=== PATIENT | female | born 1990 | race Caucasian/White ===

== ENCOUNTER 2018-05-21 13:37 | Observation (INO) ==
--- NOTE | 2018-05-21 16:53 | Internal Med History&Physical ---
<[email or web address] - Last Filed: 05/21/18 17:56> Date of Encounter: 05/21/18 Time of Encounter: 16:00 Internal Medicine - H&P: HPI Chief complaint: Seizure-type activity Admitted From: Intrahospital Transfer Plans for Post Hospital Care: Home History of present illness: Ms. Brumfield is a 27 year old female w/no PMH presents from the [place] ED w/ CC of seizure-type episodes for the past several days. Patient has had 4 episodes of seizure-type activity on Sunday, 2 on Sunday, and 1 today. Pt. reports being somewhat cognizant of what is going on but cannot always see during episodes. States she has left arm and right leg jerking movements during episodes and her eyes to the upper right. Reports blacking out @ work 3 years ago and waking up to same sx. Reports recent blurry vision and right-sided facial pain from forehead to jaw post-episode. Denies hx of seizures. No familial hx. Father hx unknown. CT w/i the past week unremarkable. Patient reports headache and intermittent swelling in bilateral hands but denies recent illness, fever, chills, nausea, vomiting, chest pain, shortness of breath, abdominal pain, diarrhea, constipation, numbness, tingling, dizziness, lightheadedness, pre-syncope, or syncope. Past Med Surg Social Fam HX - Past Medical History Source: patient, old records reviewed Medical history: no medical history Psychiatric history: no psych history - Past Surgical History Surgical History: Additional surgical history: csection - Social History Smoking Status: Never smoker Smokeless Tobacco Status: No Alcohol use: rarely Drug use: none Occupational status: employed Current living situation: Home, With Family Activity Level: Independent ambulation, Very active Recent Out of Country Travel Within the Last 8 Weeks: No Exposure or Possible Exposure to Illness During Travel: No - Family History Mother Race: Family Member Ethnicity: Non- Living Status: Still Living Hx Family Endocrine Disorder: Yes (DM) Hx Family Musculoskeletal Disorders: Yes (Chronic back pain) Father History Unknown: Yes Race: Family Member Ethnicity: Non- Grandfather Race: Family Member Ethnicity: Non- Living Status: Still Living Hx Family Cardiac Disorders: Yes (HTN) Hx Family Endocrine Disorder: Yes (DM) Grandmother Race: Family Member Ethnicity: Non- Living Status: Still Living Hx Family Psychosocial Disorders: Yes (Tobacco abuse) Brother Race: Family Member Ethnicity: Non- Living Status: Still Living Hx Family Medical Disorders: No Internal Medicine - H&P: Meds No Known Home Drugs 05/21/18 [History] 3 Allergy/AdvReac Type Severity Reaction Status Date / Time azithromycin [From Zithromax] Allergy Swelling Verified 05/21/18 10:37 of Lip/Tongue/Throat All Systems PM: A 10-system review of systems was performed and is negative for pertinent findings except as documented above in the HPI. - Constitutional Constitutional: as per HPI, no chills, no fever(s), no night sweats - EENT Eyes: no change in vision, no discharge, no pain, no photophobia Ears: no ear discharge, no ear pain, no tinnitus Nose, mouth and throat: no dysphagia, no nasal discharge, no neck pain, no sore throat - Breasts Breasts: as per HPI - Cardiovascular Cardiovascular ROS IM: no chest pain, no diaphoresis, no dyspnea, no lightheadedness, no palpitations, no syncope - Respiratory Respiratory: no cough, no dyspnea, no wheezing, no excessive phlegm production - Gastrointestinal Gastrointestinal: no abdominal pain, no diarrhea, no hematemesis, no hematochezia, no melena, no nausea, no vomiting - Genitourinary Genitourinary: no change in urinary stream, no dysuria, no flank pain, no hematuria Menstruation: as per HPI - Musculoskeletal Musculoskeletal ROS IM: back pain, no numbness, no tingling - Integumentary Integumentary IM: no rash, no unusual bruising - Neurological Neurological ROS: as per HPI, abnormal movements, convulsions, headache(s), tremor(s), other visual disturbances, no confusion, no focal weakness, no numbness, no tingling - Psychiatric Psychiatric: as per HPI, other (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) - Endocrine Endocrine IM: as per HPI - Hematologic/Lymphatic Hematologic/Lymphatic: no easy bruising - Allergic/Immunologic Allergic/Immunologic: as per HPI - Constitutional Vitals: Temp Pulse Resp BP Pulse Ox 98.3 F 84 18 115/82 96 05/21/18 15:35 07/31/18 15:35 05/21/18 15:35 05/21/18 15:35 05/21/18 15:35 General appearance: Present: cooperative, A&O X 3, pleasant, no acute distress, obese, answers questions appropriately - Head Head exam: Present: atraumatic, normocephalic - Eye Eye exam: Present: PERRL, conjuntiva pink, sclera anicteric Pupils: Present: PERRL - ENT ENT exam: Present: normal exam - Neck Neck exam general surgery: Present: normal inspection, supple, trachea midline. Absent: lymphadenopathy - Respiratory Respiratory exam: Present: CTAB. Absent: accessory muscle use, rales, rhonchi, wheezes - Cardiovascular Cardiovascular exam: Present: RRR, +S1, +S2. Absent: diastolic murmur, gallop, rubs, systolic murmur - GI/Abdominal GI/Abdominal exam: Present: normal bowel sounds, soft, no peritoneal signs. Absent: distended, tenderness - Rectal Rectal exam: Present: deferred - Additional comments: exam deferred. - Extremities Exam Extremities exam: Present: warm, radial pulses palpable and symmetrical. Absent : calf tenderness, cyanotic, pedal edema - Back Exam Back exam: Present: normal inspection - Neurological Exam Neurological exam: Present: alert, CN II-XII intact, oriented X3, no focal deficits. Absent: pronater drift, facial droop, speech deficit - Psychiatric Psychiatric exam: Present: normal affect, normal mood - Skin Skin exam: Present: dry, intact Internal Med - H&P Results - EKG Data EKG comments: 05/21/18 17:29 EKG dated 05/19/18 shows sinus rhythm with sinus arrhythmia. Normal ECG. - Assessment and plan (1) Seizure-like activity Current Visit: Yes Status: Acute Assessment and plan: Acute seizure-type episodes. Pt. reports first episode approximately 3 years ago following the of her daughter. Patient also states she had 4 episodes on Sunday, 2 episodes on Sunday, and 1 episode today. One episode witnessed by ED physician. Pt. reports being somewhat cognizant of what is going on but cannot always see during episodes. Reports recent blurry vision and right-sided facial pain from forehead to jaw post-episode. Denies hx of seizures. No familial hx. Father hx unknown. CT w/i the past week unremarkable. MRI of head/brain ordered. Seizure precautions. Padding to bed rails. Neurology consult ordered and discussed w/Dr. Correa w/recommendation for EEG and I appreciate the consult and recommendations as always. Falls/safety and up with assist. Pt. discussed w/Dr. Prasad who agrees with plan of care. Patient is moderate risk for further morbidity due to repeated seizure type activity over the past 4 days, history of seizure type activity approximately 3 years ago, and residual weakness of the LUE and RLE post-episode. Observation. (2) DVT prophylaxis Current Visit: Yes Status: Acute Assessment and plan: Bilateral SCDs on LEs until MRI resulted. (3) Weakness Current Visit: Yes Status: Acute Assessment and plan: Acute weakness following seizure-type episodes. Pt. reports weakness in right leg and left arm following tremors. Pt. also reports bilateral back pain following episodes from muscles tightening. Falls/safety precautions and up with assist only. - Time Spent With Patient Total time spent is greater than 50% in coordination of care (as documented) at patient's floor/unit and/or counseling patient: Greater than 35 minutes <Gonzales Prasad - Last Filed: 05/21/18 19:24> Date of Encounter: 05/21/18 Internal Medicine - H&P: HPI History of present illness: Ms. Brumfield is a 27 year old female All Systems PM: A 10-system review of systems was performed and is negative for pertinent findings except as documented above in the HPI. - Constitutional Vitals: Temp Pulse Resp BP Pulse Ox 98.8 F 88 16 132/83 96 05/21/18 19:16 05/21/18 19:16 05/21/18 19:16 05/21/18 19:16 05/21/18 19:16 Internal Med - H&P Results - Impressions ITS Impressions Brain MRI 05/21/18 16:58 IMPRESSION: Normal MRI of the brain without contrast. D/ / Ferdinand Wilson / Ferdinand Wilson Interpreting Provider: Ferdinand Wilson - Attending Attestation Discussed patient with LINCOLN and agree with assessment and plan as above Patient is a 27-year-old female who presents with seizures. On examination patient eating sitting up in the bed comfortable Consult neurology for evaluation and management of seizures. - Assessment and plan (1) Seizure-like activity Current Visit: Yes Status: Acute (2) DVT prophylaxis Current Visit: Yes Status: Acute (3) Weakness Current Visit: Yes Status: Acute - Time Spent With Patient Total time spent is greater than 50% in coordination of care (as documented) at patient's floor/unit and/or counseling patient:
[2018-05-21] MEDS ORDERED: Acetaminophen 325 MG TABLET PO PRN (16:54)
[2018-05-21] MEDS ORDERED: Naloxone 0.4 MG/ML INJ IVP PRN (16:54)
[2018-05-21] MEDS ORDERED: *HR* HYDROcodone/Acet 7.5/325 mg TABLET PO PRN (23:31)
[2018-05-22 05:01] LABS: Basophils % 0.3 %; Eosinophils # 0.2 K/mcL (0.0-0.6); Eosinophils % 1.6 %; Hematocrit 40.7 % (35.3-44.9); Hemoglobin 14.2 g/dL (11.5-15.4); Immature Granulocytes % 0.2 % (0-4); Lymphocytes # 4.4 K/mcL (0.6-4.6); Lymphocytes % 47.5 %; Mean Corpuscular HGB Conc 34.9 g/dL (31.6-35.5); Mean Corpuscular Hemoglobin 32.4 pg (28.0-33.3); Mean Corpuscular Volume 92.9 fL (83.0-100.0); Mean Platelet Volume 10.5 fL (9.4-12.4); Monocytes # 0.7 K/mcL (0.0-1.3); Monocytes % 7.1 %; Platelet Count 256 K/mcL (140-400); Red Blood Count 4.38 M/mcL (3.82-4.97); Red Cell Distribution Width 11.8 % (11.5-14.5); Segmented Neutrophils % 43.3 %
[2018-05-22 05:21] LABS: Alanine Aminotransferase 52 Units/L (7-52); Albumin 4.5 g/dL (3.5-5.7); Albumin/Globulin Ratio 1.6 (1.1-2.2); Alkaline Phosphatase 61 Units/L (34-104); Aspartate Amino Transferase 28 Units/L (13-39); BUN/Creatinine Ratio 18 (6-26); Bilirubin,Total 1.1 mg/dL (0.3-1.0); Blood Urea Nitrogen 14 mg/dL (6-20); Calcium 9.3 mg/dL (8.6-10.3); Carbon Dioxide 23 mEq/L (23-29); Chloride 108 mEq/L (98-107); Chol/HDL Ratio 3.9 (0-4.9); Cholesterol 135 mg/dL (< 200); Globulin 2.9 g/dL (2.4-3.5); Glucose 96 mg/dL (70-105); HDL Cholesterol 35 mg/dL (40-59); LDL Cholesterol,Calculated 81 mg/dL (0-99); Magnesium 1.8 mg/dL (1.6-2.6); Osmolality,Calculated 288 (280-300); Potassium 3.8 mEq/L (3.5-5.1); Sodium 139 mEq/L (136-145); Total Protein 7.4 g/dL (6.4-8.9); Triglycerides 94 mg/dL (< 150); eGFR For Non-African Americans > 60 (> 60)
[2018-05-22 07:06] LABS: Estimated Average Glucose 111 mg/dl; Hemoglobin A1C 5.5 %
--- NOTE | 2018-05-22 10:36 | Neurology - Consult Note ---
<Rolan Llamas T - Last Filed: 05/22/18 10:25> Date of Encounter: 05/22/18 Time of Encounter: 10:00 Assessment and Plan (1) Seizure-like activity Current Visit: Yes Status: Acute Lab and imaging workup normal so far EEG in process now Activity described by patient does not sound epileptic in origin and toxic/ metabolic causes not evident so far Will reassess when EEG complete but if normal ok to dc and already has office fu appt next week. Code(s): R56.9 - Unspecified convulsions SNOMED Code(s): 412497813 History of Present Illness Chief complaint: Multiple seizure like activity HPI: Ms. Brumfield is a 27 year old female with an insignificant PMH that neurology is being consulted for multiple seizure like activity. She states she had 4 seizures 4 days ago at work and was taken to the ED and discharged same day. She had 2 more seizures 3 days ago and 1 more yesterday and was taken to the ED here and admitted. She describes her seizures as she is not "completely out" and can still here but can not see. She says her L arm shakes, R knee/R lateral thigh tightens and her mid back gets tight. This lasts for 2-3 min and has a postictal state for 1/2-1 hour. Her multiple seizures occurred ~10 min apart from each other. She describes an aura consisting of perioral numbness, and maxillary numbness ~10 min before an event happens. She says she first had a seizure 6 years ago after giving and then again this Feb had 2 more. She is not on any antiepileptics and when worked up previously everything has been normal. 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 Past Med Surg Social Fam HX - Past Medical History Medical history: no medical history Psychiatric history: no psych history - Past Surgical History Surgical History: Additional surgical history: csection - Social History Smoking Status: Never smoker Smokeless Tobacco Status: No Alcohol use: rarely Drug use: none - Family History Mother Race: Family Member Ethnicity: Non- Living Status: Still Living Hx Family Endocrine Disorder: Yes (DM) Hx Family Musculoskeletal Disorders: Yes (Chronic back pain) Father History Unknown: Yes Race: Family Member Ethnicity: Non- Grandfather Race: Family Member Ethnicity: Non- Living Status: Still Living Hx Family Cardiac Disorders: Yes (HTN) Hx Family Endocrine Disorder: Yes (DM) Grandmother Race: Family Member Ethnicity: Non- Living Status: Still Living Hx Family Psychosocial Disorders: Yes (Tobacco abuse) Brother Race: Family Member Ethnicity: Non- Living Status: Still Living Hx Family Medical Disorders: No Medications and Allergies No Known Home Drugs 05/21/18 [History] 3 Allergy/AdvReac Type Severity Reaction Status Date / Time azithromycin [From Zithromax] Allergy Swelling Verified 05/21/18 10:37 of Lip/Tongue/Throat All Systems: The remainder of the systems were reviewed and are negative Physical Examination - Vital Signs Vital Signs: Initial Vital Signs Temp Pulse Resp BP Pulse Ox 98.3 F 84 18 115/82 96 05/21/18 15:35 05/21/18 15:35 05/21/18 15:35 05/21/18 15:35 05/21/18 15:35 - Constitutional General appearance: comfortable - Neurologic Sensorimotor examination: intact Detailed motor examination: full strength in all major muscle groups Detailed sensory examination: intact Mental Status Examination: alert, oriented to person, oriented to place, oriented to time, follows commands appropriately, answers questions appropriately Cranial nerve examination: PERRL, EOMI, visual triplett intact, sensory to face intact, no facial asymmetry is present, no dysarthria, hearing is intact symmetrically, soft palate elevates bilaterally upon phonation, flexes SCM and trapezius muscles symmetrically with full power, tongue protrudes midline, no atrophy or facial fasiculations present Cerebellar examination: no dysmetria Results - Laboratory Findings CBC and BMP: 05/22/18 04:25 05/22/18 04:25 Abnormal lab findings: Abnormal lab results Chloride 108 mEq/L (98-107) H 05/22/18 04:25 Total Bilirubin 1.1 mg/dL (0.3-1.0) H 05/22/18 04:25 HDL Cholesterol 35 mg/dL (40-59) L 05/22/18 04:25 Consult Discharge Plan - Plan Additional Instructions: Your EEG was negative, follow up with PCP and neurology as scheduled. YOu will need to be cleared by PCP for return to work. Return to your normal diet and activities as tolerated. Return to the ER as needed for any other problems or concerns, or if your symptoms return or worsen. Referrals: Yoly Thorpe [Advanced Practice Nurse] - 05/30/18 2:30 pm (Please cancel this appointment if you are unable to keep it within 24 hours. You will be receiving a new patient packet please fill it out and bring it with you. Also, bring photo ID, insurance cards and any medications you are currently taking. ) Vic Correa MD [Partnered Physician] - 05/29/18 7:30 am <Vic Correa I - Last Filed: 05/22/18 14:42> Date of Encounter: 05/22/18 Assessment and Plan (1) Seizure-like activity Current Visit: Yes Status: Acute Pt was seen and examined, my medical decision was reviewed with the Resident Physician, I agree with the documented findings, disposition and treatment plas as described except to the extent set forth below Patient having these multiple spells off and on for some time without completely losing consciousness normal neurological examination. Imaging studies normal. She just had an EEG that was also did not show any acute abnormality. At the moment though seizures are in the differential but the possibility that these could be related to stress and these could be nonepileptic. At the moment I would not recommend starting her on any seizure medication perhaps she could be reevaluated as an outpatient and would benefit from 48 hours long-term ambulatory EEG. Follow-up in neurology clinic as an outpatient in 3-4 weeks Vic Correa MD History of Present Illness HPI: Ms. Brumfield is a 27 year old female All Systems: The remainder of the systems were reviewed and are negative Physical Examination - Vital Signs Vital Signs: Initial Vital Signs Temp Pulse Resp BP Pulse Ox 98.3 F 84 18 115/82 96 05/21/18 15:35 05/21/18 15:35 05/21/18 15:35 05/21/18 15:35 05/21/18 15:35 Results - Laboratory Findings CBC and BMP: 05/22/18 04:25 05/22/18 04:25 Abnormal lab findings: Abnormal lab results Chloride 108 mEq/L (98-107) H 05/22/18 04:25 Total Bilirubin 1.1 mg/dL (0.3-1.0) H 05/22/18 04:25 HDL Cholesterol 35 mg/dL (40-59) L 05/22/18 04:25
--- NOTE | 2018-05-22 10:41 | EEG/EMG/Oth Biometrics Report ---
EEG Procedure Report EEG Procedure: Routine EEG Procedure Note: Routine 21-channel digital EEG performed and recorded utilizing the standard international 10-20 electrode placement system. FINDINGS: This patient has predominant waking background rhythm which is well- organized, well-developed, average voltage 8 to 10 hertz alpha activity in the posterior regions, symmetrical over the both hemispheres reactive to eye opening and closing, and it is bilaterally synchronous. No [id number] discharges or any lateralizing abnormalities are seen. Photic stimulation and hyperventilation did not produce any convulsive response. No abnormalities were found during the procedure. Intermittent EMG artifacts were seen as well as lateral rectus spikes in frontal leads off and on during the study, Stage II sleep was not achieved. IMPRESSION: Normal awake/ drowsy electroencephalogram. No epileptiform discharges or any other paroxysmal activities or focal abnormalities seen. (Please note that normal EEG does not exclude the diagnosis of seizure or epilepsy, Clinical correlation is recommended.
[2018-05-22 11:35] VITALS: BP 124/79
--- NOTE | 2018-05-22 13:20 | Discharge Summary ---
Orders not resulted at time of discharge: Pending orders 05/21/18 17:11 EKG [ECG 12 lead ECG] [ECG] Routine 05/23/18 04:00 Complete Blood Count [HEME] AM 0400 Comprehensive Metabolic Panel AM 0400 05/24/18 04:00 Complete Blood Count [HEME] AM 0400 Comprehensive Metabolic Panel AM 0400 Date of Encounter: 05/22/18 Time of Encounter: 11:20 - Discharge Diagnosis (1) Seizure-like activity Priority: Primary Status: Acute Assessment and Plan: Acute seizure-type episodes. Pt. reports first episode approximately 3 years ago following the of her daughter. Patient also states she had 4 episodes on Sunday, 2 episodes on Sunday, and 1 episode today. One episode witnessed by ED physician. Pt. reports being somewhat cognizant of what is going on but cannot always see during episodes. Reports recent blurry vision and right-sided facial pain from forehead to jaw post-episode. Denies hx of seizures prior to [address] within the past week unremarkable. MRI of head/brain negative. EEG unremarkable. Patient reports that she still feels weak, this is normal for her after these episodes. Follow-up with neurology in the office in 7 days. Patient to return to work when she is cleared by neurology. (2) DVT prophylaxis Priority: Secondary Status: Acute Assessment and Plan: Bilateral SCDs on LEs. Patient is ambulatory. (3) Weakness Priority: Secondary Status: Acute Assessment and Plan: Acute weakness following seizure-type episodes. Pt. reports weakness in right leg and left arm following tremors. Pt. also reports bilateral back pain following episodes from muscles tightening. Patient states that today she feels "groggy." Patient states that she is always weak after these episodes. Patient to be cleared to return to work by primary care. Hospital course: Ms. Brumfield is a 27 year old female with no significant medical history. Patient reports seizure-like activity for the last 3 years. It is intermittent and workups in the past have been negative. Patient recently had multiple episodes prior to admission. She reports that she usually feels weak afterwards and feels groggy today. MRI of the brain was negative, EEG was unremarkable. Patient was evaluated by neurology, they do not feel that the activity described was epileptic in nature and vision appear to be any toxic/ metabolic causes. Patient reports significant work stress, if continue neurological workup is negative, patient could benefit from psychiatric evaluation. Labs and vitals are stable and within normal limits. Patient will be discharged stable condition. Discharge discussed with: patient - Time Spent with Patient Total time spent providing and/or coordinating discharge services: Less than 30 minutes - Discharge Medications Home Medications: No Known Home Drugs 05/21/18 [History] Allergies/Adverse Reactions: 3 Allergy/AdvReac Type Severity Reaction Status Date / Time azithromycin [From Zithromax] Allergy Swelling Verified 05/21/18 10:37 of Lip/Tongue/Throat Date of admission: 05/21/18 15:22 Primary care physician: PCP NONE Consults: 05/21/18 16:57 Consult to Nailer Operator [CONS] Routine Reason for SW Consult: Pt. needs PCP. States previous PCP was Nita Meade. Please assess for any other home needs for post-discharge planning. 05/21/18 16:59 Consult to Neurology [CONS] Routine Consulting Provider: [facility] Reason for Consult: Patient has had 4 episodes of seizure-type activity on Sunday, 2 on Sunday, and 1 today. Pt. reports being somewhat cognizant of what is going on but cannot always see during episodes. Reports blacking out @ work 3 years ago and waking up to same sx. Reports recent blurry vision and right-sided facial pain from forehead to jaw post-episode. Denies hx of seizures. No familial hx. Father hx unknown. CT w/i the past week unremarkable. MRI of head/brain ordered. Seizure precautions. Call Completed: Yes 05/22/18 11:14 Consult to Interpret Exam [CONS] Routine Consulting Provider: Vic Correa I Consult to Interpret Exam: Interpret EEG Discharging clinician: Yecenia Acuna Anticipated date of discharge: 05/22/18 - Constitutional Vitals: Temp Pulse Resp BP Pulse Ox 98.3 F 78 18 124/79 97 05/22/18 11:35 05/22/18 11:35 05/22/18 11:35 05/22/18 11:35 05/22/18 11:35 General appearance: Present: cooperative, A&O X 3, pleasant, no acute distress, obese, answers questions appropriately - Head Head exam: Present: atraumatic, normal inspection, normocephalic - Eye Eye exam: Present: normal appearance, conjuntiva pink, sclera anicteric - Neck Neck exam general surgery: Present: normal inspection, supple, trachea midline. Absent: lymphadenopathy, tenderness - Respiratory Respiratory exam: Present: CTAB. Absent: accessory muscle use, chest wall tenderness, rales, respiratory distress, rhonchi, wheezes - Cardiovascular Cardiovascular exam: Present: RRR, +S1, +S2. Absent: diastolic murmur, gallop, rubs, systolic murmur - GI/Abdominal GI/Abdominal exam: Present: normal bowel sounds, soft. Absent: distended, hepatomegaly, tenderness - Extremities Exam Extremities exam: Present: normal capillary refill, normal inspection, warm, radial pulses palpable and symmetrical. Absent: calf tenderness, cyanotic, joint swelling, pedal edema, tenderness - Neurological Exam Neurological exam: Present: alert, oriented X3, no focal deficits. Absent: facial droop, speech deficit - Skin Skin exam: Present: dry, intact, normal color, warm. Absent: rash - Patient Status Disposition: Home, Self-Care Condition: Good Functional capacity at discharge: independent ambulation Overall status at discharge: patient is progressing back to baseline - Discharge Instructions Follow Up With: Yoly Thorpe [Advanced Practice Nurse] - 05/30/18 2:30 pm (Please cancel this appointment if you are unable to keep it within 24 hours. You will be receiving a new patient packet please fill it out and bring it with you. Also, bring photo ID, insurance cards and any medications you are currently taking. ) Vic Correa MD [Partnered Physician] - 05/29/18 7:30 am Additional Instructions: Your EEG was negative, follow up with PCP and neurology as scheduled. YOu will need to be cleared by PCP for return to work. Return to your normal diet and activities as tolerated. Return to the ER as needed for any other problems or concerns, or if your symptoms return or worsen. - Diet and Activity Activity: increase activity as tolerated, return to work once cleared by your PCP/specialist Diet: advance to your usual diet - VTE Documentation of Mechanical Device: Intermittent pneumatic compression device
== END 2018-05-22 15:05 | disposition home or self-care (01) ==
LOC: 3BNU
PROVIDERS: ADMIT Hospitalist; ATTEND Hospitalist

== ENCOUNTER 2021-09-08 | Observation (INO) ==
[2021-09-08] MEDS ORDERED: Naloxone 0.4 MG/ML INJ IVP PRN (02:47)
[2021-09-08] MEDS ORDERED: Ringers Solution, Lactated 1,000 ML IVC SCH (03:30)
[2021-09-08 05:13] LABS: Basophils # 0.1 K/mcL (0.0-0.2); Basophils % 0.5 %; Eosinophils # 0.2 K/mcL (0.0-0.6); Eosinophils % 1.6 %; Hematocrit 37.2 % (35.3-44.9); Hemoglobin 12.9 g/dL (11.5-15.4); Immature Granulocytes % 0.7 % (0-4); Lymphocytes # 4.3 K/mcL (0.6-4.6); Lymphocytes % 35.4 %; Mean Corpuscular HGB Conc 34.7 g/dL (31.6-35.5); Mean Corpuscular Hemoglobin 33.5 pg (28.0-33.3); Mean Corpuscular Volume 96.6 fL (83.0-100.0); Mean Platelet Volume 10.3 fL (9.4-12.4); Monocytes # 1.3 K/mcL (0.0-1.3); Monocytes % 10.3 %; Neutrophils # 6.3 K/mcL (1.6-8.9); Nucleated Red Blood Cells 0.3 /100 WBC (0); Platelet Count 241 K/mcL (140-400); Red Blood Count 3.85 M/mcL (3.82-4.97); Red Cell Distribution Width 11.5 % (11.5-14.5); Segmented Neutrophils % 51.5 %; White Blood Count 12.2 K/mcL (4.3-11.1)
[2021-09-08 05:30] LABS: Alanine Aminotransferase 32 Units/L (7-52); Albumin 3.4 g/dL (3.5-5.7); Albumin/Globulin Ratio 1.2 (1.1-2.2); Alkaline Phosphatase 43 Units/L (34-104); Aspartate Amino Transferase 23 Units/L (13-39); BUN/Creatinine Ratio 16 (6-26); Bilirubin,Direct 0.2 mg/dL (0.0-0.2); Bilirubin,Indirect 1.4 mg/dL (0.0-1.0); Bilirubin,Total 1.6 mg/dL (0.3-1.0); Blood Urea Nitrogen 11 mg/dL (6-20); Carbon Dioxide 23 mEq/L (23-29); Chloride 111 mEq/L (98-107); Globulin 2.8 g/dL (2.4-3.5); Glucose 94 mg/dL (70-105); Magnesium 1.8 mg/dL (1.6-2.6); Osmolality,Calculated 289 (280-300); Phosphorous 2.2 mg/dL (2.7-4.5); Potassium 3.8 mEq/L (3.5-5.1); Sodium 140 mEq/L (136-145); Total Protein 6.2 g/dL (6.4-8.9); eGFR For African Americans > 60 (> 60); eGFR For Non-African Americans > 60 (> 60)
[2021-09-08] MEDS: Ondansetron 4 MG/2 ML VIAL IVP PRN ×2 (05:39→14:36)
[2021-09-08 05:48] LABS: Platelet Estimate Normal (Normal); Smudge Cells Present (Not Present)
[2021-09-08] MEDS ORDERED: Acetaminophen 325 MG TABLET PO PRN (07:44)
[2021-09-08] MEDS: Venlafaxine XR (24 HR) 75 MG CAP.ER.24H PO SCH (08:17)
[2021-09-08] MEDS: Piperacillin/Tazobactam 3.375 GM in 0.9 % Sodium Chloride Mini Bag 100 ML IVPB SCH ×2 (14:37→21:01)
[2021-09-09] MEDS: Morphine Sulfate 2 MG/ML SYRINGE IVP PRN ×2 (00:03→23:32)
[2021-09-09] MEDS: Ondansetron 4 MG/2 ML VIAL IVP PRN (00:13)
[2021-09-09 03:41] LABS: Basophils % 0.4 %; Eosinophils # 0.2 K/mcL (0.0-0.6); Eosinophils % 2.4 %; Hematocrit 37.1 % (35.3-44.9); Hemoglobin 12.7 g/dL (11.5-15.4); Immature Granulocytes % 0.3 % (0-4); Lymphocytes # 3.3 K/mcL (0.6-4.6); Lymphocytes % 35.3 %; Mean Corpuscular HGB Conc 34.2 g/dL (31.6-35.5); Mean Corpuscular Hemoglobin 33.1 pg (28.0-33.3); Mean Corpuscular Volume 96.6 fL (83.0-100.0); Mean Platelet Volume 10.3 fL (9.4-12.4); Monocytes # 0.8 K/mcL (0.0-1.3); Monocytes % 8.3 %; Platelet Count 247 K/mcL (140-400); Red Blood Count 3.84 M/mcL (3.82-4.97); Red Cell Distribution Width 11.1 % (11.5-14.5); Segmented Neutrophils % 53.3 %; White Blood Count 9.3 K/mcL (4.3-11.1)
[2021-09-09 04:04] LABS: BUN/Creatinine Ratio 11 (6-26); Blood Urea Nitrogen 8 mg/dL (6-20); Calcium 8.5 mg/dL (8.6-10.3); Carbon Dioxide 27 mEq/L (23-29); Chloride 107 mEq/L (98-107); Glucose 85 mg/dL (70-105); Osmolality,Calculated 290 (280-300); Potassium 3.6 mEq/L (3.5-5.1); Sodium 141 mEq/L (136-145); eGFR For African Americans > 60 (> 60); eGFR For Non-African Americans > 60 (> 60)
[2021-09-09] MEDS: Piperacillin/Tazobactam 3.375 GM in 0.9 % Sodium Chloride Mini Bag 100 ML IVPB SCH ×3 (05:33→23:12)
[2021-09-09 06:33] LABS: Influenza A PCR Negative (Negative); Influenza B PCR Negative (Negative); Resp. Syncytial Virus PCR Negative (Negative)
[2021-09-09 06:38] LABS: SARS-CoV-2 by PCR (In House) Negative (Negative)
[2021-09-09] MEDS ORDERED: Acetaminophen IV 1,000 MG/100 ML BAG IVPB ONE ×2 (08:52→10:05)
[2021-09-09 09:02] LABS: Albumin 3.7 g/dL (3.5-5.7); Albumin/Globulin Ratio 1.3 (1.1-2.2); Bilirubin,Direct 0.2 mg/dL (0.0-0.2); Bilirubin,Total 1.2 mg/dL (0.3-1.0); Globulin 2.8 g/dL (2.4-3.5); Total Protein 6.5 g/dL (6.4-8.9)
[2021-09-09] MEDS ORDERED: *HR* FentaNYL (PF) 100 MCG/2 ML VIAL ONE ×2 (09:19→10:19)
[2021-09-09] MEDS ORDERED: *HR* Midazolam HCl 2 MG/2 ML VIAL ONE (09:19)
[2021-09-09] MEDS ORDERED: *HR* Propofol 200 MG/20 ML VIAL IVP ONE (09:22)
[2021-09-09] MEDS ORDERED: Lidocaine -MPF 2% 5 ML VIAL ONE (09:25)
[2021-09-09] MEDS ORDERED: Ondansetron 4 MG/2 ML VIAL ONE (09:25)
[2021-09-09] MEDS ORDERED: *HR* Succinylcholine 200 MG/10 ML VIAL IVP ONE (09:25)
[2021-09-09] MEDS ORDERED: EPHEDrine 50 MG/ML VIAL ONE (10:10)
[2021-09-09] MEDS ORDERED: Sugammadex Sodium 200 MG/2 ML VIAL IV ONE (10:25)
[2021-09-09] MEDS: *HR* FentaNYL (PF) 100 MCG/2 ML VIAL IVP PRN ×4 (11:41→12:11)
[2021-09-09] MEDS: *HR* HYDROmorphone (PF) 1 MG/ML SYRINGE IVP PRN ×3 (12:36→12:59)
[2021-09-09] MEDS: Venlafaxine XR (24 HR) 75 MG CAP.ER.24H PO SCH (14:16)
[2021-09-09] MEDS ORDERED: Ketorolac 30 MG/ML VIAL IVP ONE (16:02)
[2021-09-09] MEDS: Melatonin 3 MG TABLET PO PRN (23:33)
[2021-09-10] MEDS: Piperacillin/Tazobactam 3.375 GM in 0.9 % Sodium Chloride Mini Bag 100 ML IVPB SCH ×3 (05:25→22:15)
[2021-09-10] MEDS: Morphine Sulfate 2 MG/ML SYRINGE IVP PRN (05:29)
[2021-09-10 05:30] LABS: Basophils % 0.2 %; Eosinophils % 0.2 %; Hematocrit 34.7 % (35.3-44.9); Immature Granulocytes % 0.3 % (0-4); Lymphocytes # 2.6 K/mcL (0.6-4.6); Lymphocytes % 22.8 %; Mean Corpuscular HGB Conc 34.6 g/dL (31.6-35.5); Mean Corpuscular Hemoglobin 33.4 pg (28.0-33.3); Mean Corpuscular Volume 96.7 fL (83.0-100.0); Mean Platelet Volume 10.4 fL (9.4-12.4); Monocytes # 0.9 K/mcL (0.0-1.3); Monocytes % 7.6 %; Neutrophils # 7.9 K/mcL (1.6-8.9); Platelet Count 256 K/mcL (140-400); Red Blood Count 3.59 M/mcL (3.82-4.97); Red Cell Distribution Width 11.1 % (11.5-14.5); Segmented Neutrophils % 68.9 %; White Blood Count 11.4 K/mcL (4.3-11.1)
[2021-09-10 05:48] LABS: BUN/Creatinine Ratio 14 (6-26); Blood Urea Nitrogen 10 mg/dL (6-20); Calcium 8.6 mg/dL (8.6-10.3); Carbon Dioxide 26 mEq/L (23-29); Chloride 108 mEq/L (98-107); Glucose 127 mg/dL (70-105); Osmolality,Calculated 291 (280-300); Sodium 140 mEq/L (136-145); eGFR For African Americans > 60 (> 60); eGFR For Non-African Americans > 60 (> 60)
[2021-09-10] MEDS: *HR* HYDROmorphone (PF) 1 MG/ML SYRINGE IVP PRN (09:03)
[2021-09-10] MEDS: Venlafaxine XR (24 HR) 75 MG CAP.ER.24H PO SCH (09:04)
[2021-09-10] MEDS ORDERED: *HR* HYDROmorphone (PF) 1 MG/ML SYRINGE IVP PRN (09:07)
[2021-09-10] MEDS ORDERED: *HR* HYDROmorphone (PF) 1 MG/ML SYRINGE IVP ONE (09:07)
[2021-09-10] MEDS ORDERED: traZODone 50 MG TABLET PO PRN (11:19)
[2021-09-10] MEDS ORDERED: Venlafaxine XR (24 HR) 75 MG CAP.ER.24H PO SCH (11:30)
[2021-09-10] MEDS: Ketorolac 30 MG/ML VIAL IVP SCH ×2 (14:52→15:12)
[2021-09-10] MEDS: Melatonin 3 MG TABLET PO PRN (22:28)
[2021-09-10] MEDS: Ondansetron 4 MG/2 ML VIAL IVP PRN (22:33)
[2021-09-11] MEDS ORDERED: Acetaminophen 325 MG TABLET PO PRN (00:15)
[2021-09-11] MEDS ORDERED: *HR* HYDROmorphone (PF) 1 MG/ML SYRINGE IVP ONE (00:15)
[2021-09-11] MEDS ORDERED: Naloxone 0.4 MG/ML INJ IVP PRN (00:15)
[2021-09-11] MEDS ORDERED: Melatonin 3 MG TABLET PO PRN (00:15)
[2021-09-11] MEDS ORDERED: NON-FORMULARY MEDICATION 1 EACH EACH (Trazodone Hcl 100 MG) PO PRN (00:15)
[2021-09-11] MEDS ORDERED: Morphine Sulfate 2 MG/ML SYRINGE IVP PRN (00:15)
[2021-09-11 01:26] LABS: Basophils % 0.4 %; Eosinophils # 0.2 K/mcL (0.0-0.6); Eosinophils % 1.9 %; Hematocrit 35.7 % (35.3-44.9); Immature Granulocytes % 0.2 % (0-4); Lymphocytes # 4.3 K/mcL (0.6-4.6); Mean Corpuscular HGB Conc 33.6 g/dL (31.6-35.5); Mean Corpuscular Hemoglobin 32.8 pg (28.0-33.3); Mean Corpuscular Volume 97.5 fL (83.0-100.0); Mean Platelet Volume 10.3 fL (9.4-12.4); Monocytes # 0.7 K/mcL (0.0-1.3); Monocytes % 7.9 %; Neutrophils # 3.9 K/mcL (1.6-8.9); Platelet Count 241 K/mcL (140-400); Red Blood Count 3.66 M/mcL (3.82-4.97); Red Cell Distribution Width 11.3 % (11.5-14.5); Segmented Neutrophils % 42.6 %; White Blood Count 9.1 K/mcL (4.3-11.1)
[2021-09-11 01:42] LABS: BUN/Creatinine Ratio 18 (6-26); Blood Urea Nitrogen 14 mg/dL (6-20); Calcium 8.5 mg/dL (8.6-10.3); Carbon Dioxide 28 mEq/L (23-29); Chloride 109 mEq/L (98-107); Glucose 108 mg/dL (70-105); Osmolality,Calculated 299 (280-300); Sodium 144 mEq/L (136-145); eGFR For African Americans > 60 (> 60); eGFR For Non-African Americans > 60 (> 60)
[2021-09-11] MEDS: Ketorolac 30 MG/ML VIAL IVP SCH (02:52)
[2021-09-11] MEDS: Piperacillin/Tazobactam 3.375 GM in 0.9 % Sodium Chloride Mini Bag 100 ML IVPB SCH ×3 (06:37→21:37)
[2021-09-11] MEDS: Venlafaxine XR (24 HR) 75 MG CAP.ER.24H PO SCH (08:54)
[2021-09-11] MEDS: Ondansetron 4 MG/2 ML VIAL IVP PRN ×2 (09:28→18:35)
[2021-09-11] MEDS: *HR* HYDROmorphone (PF) 1 MG/ML SYRINGE IVP PRN ×2 (10:03→18:32)
[2021-09-11] MEDS ORDERED: Simethicone 80 MG TAB.CHEW PO PRN (10:18)
[2021-09-11] MEDS: Sennosides/Docusate Sodium TABLET PO PRN (15:05)
[2021-09-12] MEDS: Piperacillin/Tazobactam 3.375 GM in 0.9 % Sodium Chloride Mini Bag 100 ML IVPB SCH (05:45)
[2021-09-12 07:40] VITALS: TEMP 98.1
[2021-09-12] MEDS: Venlafaxine XR (24 HR) 75 MG CAP.ER.24H PO SCH (08:23)
[2021-09-12] MEDS: Sennosides/Docusate Sodium TABLET PO PRN (08:23)
[2021-09-12] MEDS: Ondansetron 4 MG/2 ML VIAL IVP PRN (08:24)
[2021-09-12] MEDS ORDERED: traZODone 50 MG TABLET PO PRN (09:30)
[2021-09-12 11:06] VITALS: BP 114/77; PULSE 92; O2SAT 97
== END 2021-09-12 13:30 | disposition home or self-care (01) ==
LOC: 2ANU → SUATTDRO 02:02 → 2ANU 09-10 17:45
PROVIDERS: ADMIT Student in an Organized Health Care Education/Training Program; ATTEND Student in an Organized Health Care Education/Training Program